=== PATIENT | female | born 1935 | race Caucasian/White ===

== ENCOUNTER 2017-11-21 12:28 | Outpatient (CLI) | payer MEDICARE, OTHER | END 2017-11-21 12:29 | disposition home or self-care (01) | LOC: BICMRI 12:28 | PROVIDERS: ATTEND Neurological Surgery | DX: M47.812 Spondylosis without myelopathy or radiculopathy, cervical region (principal) | CPT/HCPCS: 72141 ==

== ENCOUNTER 2018-01-11 06:06 | Observation (INO) | payer MEDICARE, OTHER ==
[2018-01-10 08:58] VITALS: BMI 30.2
[2018-01-11 06:46] LABS: #Basophils 0.1 thou/uL (0.0-0.2); #Eosinphils 0.2 thou/uL (0.0-0.7); #Lymphocytes 2.6 thou/uL (1.20-3.40); #Monocytes 0.6 thou/uL (0.11-0.59); #Neutrophils 4.2 thou/uL (1.40-6.50); %Basophils 1.3 % (0.0-1.0); %Lymphocytes 34.2 % (21.0-51.0); %Monocytes 8.4 % (0.0-10.0); %Neutrophils 54.1 % (42.0-75.0); Hemoglobin 13.5 g/dL (12.0-16.0); Mean Corpuscular HGB CONC 33.7 g/dL (32.0-36.0); Mean Corpuscular Hemoglobin 30.4 pg (27.0-31.0); Mean Corpuscular Volume 90.2 fl (81.0-99.0); Platelet Count 273 thou/uL (130-400); RBC Distribution Width 12.2 % (11.5-14.5); Red Blood Cell (RBC) Count 4.45 mill/uL (4.20-5.40); White Blood Cell (WBC) Count 7.7 thou/uL (4.8-10.8)
[2018-01-11 07:04] LABS: Anion Gap 14 mmol/L (10-20); BUN (Urea Nitrogen) 18 mg/dL (9.8-20.1); Calc. Creatinine Clearance 58 mL/min (70-130); Calcium 9.4 mg/dL (7.8-10.44); Carbon Dioxide 27 mmol/L (23-31); Chloride 100 mmol/L (98-107); Estimated GFR-MDRD 63; Glucose 238 mg/dL (83-110); Potassium 3.6 mmol/L (3.5-5.1); Sodium 137 mmol/L (136-145)
[2018-01-11] MEDS ORDERED: CEFAZOLIN/Water 2 GM/20 ML SYRINGE ONE (07:07)
[2018-01-11] MEDS ORDERED: Midazolam HCl 2 mg/2 ml Vial ONE (07:07)
[2018-01-11] MEDS ORDERED: Phenylephrine HCL 10 MG/ML VIAL ONE (07:09)
[2018-01-11] MEDS ORDERED: Fentanyl 100 MCG/2 ML VIAL ONE ×2 (07:19→09:14)
[2018-01-11] MEDS ORDERED: Sodium Chloride 0.9% 10 ML ONE (07:48)
[2018-01-11] MEDS ORDERED: HYDROmorphone 0.5 MG/0.5 ML SYRINGE ONE (08:22)
[2018-01-11] MEDS ORDERED: Morphine Sulfate 2 MG/ML SYRINGE SLOW IVP PRN (08:54)
[2018-01-11] MEDS ORDERED: HYDROmorphone 2 MG/ML VIAL SLOW IVP PRN (08:54)
[2018-01-11] MEDS ORDERED: Meperidine HCl/PF 25 MG/ML VIAL SLOW IVP PRN (08:54)
[2018-01-11] MEDS ORDERED: Promethazine HCl 25 MG/ML VIAL IM PRN (08:54)
[2018-01-11] MEDS ORDERED: Ondansetron HCl/PF 4 MG/2 ML Vial IVP PRN ×2 (08:54→15:33)
[2018-01-11] MEDS ORDERED: Promethazine HCl 25 MG/ML VIAL SLOW IVP PRN (08:54)
--- NOTE | 2018-01-11 09:02 | OP ---
DATE OF SERVICE: 01/11/2018 SURGEON: Deni Taveras M.D. MANUFACTURING ENGINEERING DIRECTOR: RAVI Iverson PROCEDURE: Anterior cervical discectomy C4-5 and C5-6, interbody arthrodesis, intravertebral biomech anical device, local morselized autograft, demineralized bone matrix, anterior titanium instrumentati on C4-5 and C5-6. PROCEDURE IN DETAIL: The patient was brought to the operating room and intubated. She was positione d supine in modest extension on a gel-filled donut. Incision was made in the right precervical area and dissecting medial to the sternocleidomastoid muscle we identified the anterior cervical spine and our level was confirmed by x-ray. We debrided anterior osteophytes. Placed distraction across the disc spaces, and then completely removed the intravertebral disc decompressing the neural elements. The bony endplates were then decorticated for the purpose of arthrodesis and appropriately sized intr avertebral biomechanical PEEK device was brought into the field, filled with demineralized bone matri x, local morselized autograft, and tapped into place securely at C4-5 and C5-6. Next, an anterior pl ate was brought in the field and secured to C5, and C6 using two 14 mm screws at each level. The wou nd was then extensively irrigated, immaculate hemostasis was secured, and the wound was closed in devyn tomic layers.
[2018-01-11] MEDS ORDERED: Lorazepam 1 MG TAB PO PRN (10:45)
[2018-01-11] MEDS ORDERED: PROPOFOL 200 MG/20 ML VIAL ONE (14:21)
[2018-01-11] MEDS ORDERED: Glycopyrrolate 0.2 MG/ML 5 ML SYRINGE ONE (14:21)
[2018-01-11] MEDS ORDERED: Dexamethasone 20 MG/5 ML VIAL ONE (14:21)
[2018-01-11] MEDS ORDERED: Lidocaine 1% PF 5 ML VIAL ONE (14:21)
[2018-01-11] MEDS ORDERED: Milk Of Magnesia 30 ML UDCUP PO PRN (15:27)
[2018-01-11] MEDS ORDERED: tiZANidine HCl 4 MG TAB PO PRN (15:27)
[2018-01-11] MEDS ORDERED: diphenhydrAMINE 25 MG CAP PO PRN (15:27)
[2018-01-11] MEDS ORDERED: HYDROcodone/Acetaminophen 10/325 mg Tablet PO PRN ×2 (15:27)
[2018-01-11] MEDS ORDERED: traMADol HCl 50 MG TAB PO PRN ×2 (15:27)
[2018-01-11] MEDS ORDERED: diphenhydrAMINE 50 MG/ML VIAL IVP PRN (15:27)
[2018-01-11] MEDS ORDERED: Mag-Al 1200 mg/1200 mg/30 ML UDCUP PO PRN (15:27)
[2018-01-11] MEDS ORDERED: Morphine 4 MG/ML VIAL SLOW IVP PRN ×2 (15:31→15:32)
--- NOTE | 2018-01-11 15:54 | CON ---
DATE OF CONSULTATION: 01/11/2018 TIME OF SERVICE: 1415 hours. PRIMARY CARE PHYSICIAN: JOSE Smart REFERRING PHYSICIAN: Dr. Deni Taveras. REASON FOR CONSULTATION: Medical management post anterior cervical diskectomy and fusion. HISTORY OF PRESENT ILLNESS: Ms. Coburn is a pleasant 82-year-old female with history of hypertensio n, depression/anxiety, hypothyroidism, breast cancer, and osteoarthritis who is postop day 0 today fr om C4-5 and C5-6 interbody arthrodesis and diskectomy with a titanium instrumentation and fusion. Sh melissa had no noted intraoperative complications. She has been seen postop for medical management. She denies any chest pain, shortness of breath or nausea and vomiting. No diarrhea or constipation. Does complain of dry mouth and upper airway congestion. She says for the last few days since the we ather change, she has had some chronic cough. Her sister and daughter at the bedside noted no other problems. PAST MEDICAL HISTORY: 1. Hypertension, essential. 2. Depression. 3. Hypothyroidism. 4. Anxiety. 5. Right-sided breast cancer in the past. PAST SURGICAL HISTORY: 1. Left TKA some 8 to 10 years ago. 2. Right mastectomy. 3. MediPort placement and subsequent partial removal. 4. TVHBSO remotely. HOME MEDICATIONS: 1. Amlodipine 5 mg p.o. daily. 2. Benadryl 25 mg p.o. daily p.r.n. allergies. 3. Duloxetine 60 mg p.o. daily. 4. Levothyroxine 100 mcg daily. 5. Lisinopril/hydrochlorothiazide 20/12.5 p.o. daily. 6. Lorazepam 1 mg p.o. b.i.d. p.r.n. anxiety. ALLERGIES: NKDA. FAMILY HISTORY: Negative for premature coronary artery disease. No history of clotting or bleeding disorder. No immune dysfunction. SOCIAL HISTORY: She does not use tobacco and does not shoot up with drugs. She does drink 3-4 beers per week, but never more than 1 at a time. Anticipates going home on discharge. REVIEW OF SYSTEMS: All systems were reviewed and negative except stated as above. PHYSICAL EXAMINATION: VITAL SIGNS: Temperature 98.3, pulse 94, blood pressure 144/72, respiratory rate 18, satting 93% on 3 liters nasal cannula. GENERAL: She is awake. She is alert. She is oriented x3. She is a well-developed, well-nourished, slightly obese elderly white female, appears to be in no distress, but does feel a little groggy. HEENT: Normocephalic, atraumatic. Pupils are equal, round, reactive to light bilaterally, mucous me mbranes are moist. She has no visible lesions. No thrush. She has some bogginess of the nasal turb inates. She has got nasal cannula in place. NECK: Supple. No lymphadenopathy, JVD or thyromegaly. She has normal carotid upstrokes. I do not appreciate bruits. Her anterior cervical diskectomy scar incision is clean, dry, and intact. There is no strikethrough through the bandage. RESPIRATORY: Lungs are clear to auscultation bilaterally.: She has good air movement. Symmetrical chest excursion. She has no prolonged expiratory phase. No wheezes, no rales, no rhonchi. CARDIOVASCULAR: She has normal cardiac and regular. Normal S1 and S2. She has no S3 or S4. She iraheta d no murmurs. ABDOMEN: Soft, is nontender, nondistended. She has hyperactive bowel sounds present in all 4 quadra nts. I did not appreciate any rebound, rigidity or guarding. EXTREMITIES: No cyanosis, no clubbing. She has no edema. SKIN: Warm, moist, and well perfused. There is no other rash or lesion other than her incision. IV site is intact. MUSCULOSKELETAL: Otherwise normal to inspection. Large joints appear uninflamed. She has good rang e of motion. No palpable effusions. NEUROLOGIC: Shows cranial nerves II-XII grossly intact. She has no focal deficits. Normal speech a nd 5/5 strength in all 4 of her extremities. LABORATORY DATA: Preoperatively shows sodium of 137, potassium 3.6, chloride 100, bicarbonate 27, BU N 18, creatinine 0.86 and glucose of 231, calcium 9.4. CBC showed a white count of 7.7, hemoglobin i s 13.5, hematocrit of 40.1, platelet count is 273,000. ASSESSMENT AND PLAN: 1. Hypertension, essential. 2. Hypothyroidism. 3. Anxiety disorder. 4. History of breast cancer. 5. Osteoarthritis. 6. Status post anterior cervical diskectomy and fusion by Dr. Taveras. Routine postoperative care per Dr. Taveras. We will monitor her blood pressure and continue thyroid medication. I will continue lisinopril/hydrochlorothiazide and her amlodipine. She did have elevat ed sugars prior to surgery. We will see if she was on any D5 or lactated Ringer's at that point. We will monitor sugars with q.6-hour Accu-Cheks tonight.
[2018-01-11] MEDS: CEFAZOLIN/Water 2 GM/20 ML SYRINGE SLOW IVP SCH ×2 (16:17→23:55)
[2018-01-11] MEDS: Sodium Chloride 0.9% 1,000 ML IV SCH (16:21)
[2018-01-11] MEDS ORDERED: Cepastat Lozenges 1 LOZ PO PRN (16:48)
[2018-01-11] MEDS ORDERED: Dextrose 50% Abboject 50 ML SYRINGE SLOW IVP PRN (16:59)
[2018-01-11] MEDS ORDERED: Dextrose 5% in Water 1,000 ML IV PRN (16:59)
[2018-01-12] MEDS: Sodium Chloride 0.9% 1,000 ML IV SCH (00:02)
[2018-01-12] MEDS ORDERED: Levothyroxine Sodium 100 MCG TAB PO SCH (06:00)
[2018-01-12 07:16] VITALS: BP 128/78; TEMP 98.6
[2018-01-12] MEDS ORDERED: diphenhydrAMINE 25 MG CAP PO SCH (09:00)
[2018-01-12] MEDS ORDERED: Amlodipine 5 MG TAB PO SCH (09:00)
[2018-01-12] MEDS ORDERED: DULoxetine 60 MG CAP PO SCH (09:00)
[2018-01-12] MEDS ORDERED: Fluticasone Propionate Nasal Spray 16 gm Bottle NASAL SCH (09:00)
[2018-01-12] MEDS ORDERED: Lisinopril/Hydrochlorothiazide 20 mg/12.5 mg Tablet PO SCH (09:00)
[2018-01-12] MEDS ORDERED: guaiFENesin ER 600 MG TAB PO SCH (09:00)
--- NOTE | 2018-01-12 09:51 | DIS ---
DATE OF ADMISSION: 01/11/2018 DATE OF DISCHARGE: 01/12/2018 ATTENDING PHYSICIAN: Dr. Deni Taveras DISCHARGE SUMMARY: The patient is an 82-year-old female who was recently seen in our offic e for progressive neck and arm pain. Her MRI revealed significant disk disease at C4-5 and 5-6 and t herefore C4-5, C5-C6 ACDF was recommended by Dr. Taveras. The patient underwent this procedure yest erday without any complications. She was transitioned to the Med/Surg floor. Her pain was well cont rolled with p.o. medications. She was tolerating regular diet, and voiding appropriately. Of note, the patient did have some elevated glucose the day of her surgery. She does not have a history of di abetes and was given LR fluids as well as Decadron during her stay. She was seen by the Hospitalist who felt like that these may have been contributory to her elevated glucose levels. They do not jameson mmend starting any glycemic medications at this time, but rather follow up with her PCP in [facility] 1 week for recheck. I am in agreement with this plan. I have discussed this with the patient. She will also see us in 2 weeks for a Neurosurgery evaluation and repeat x-rays. I discussed home care precautions and reason s to reach out to us sooner. She has been provided with prescriptions for [place] as well as Zanaflex.
--- NOTE | 2018-01-12 21:56 | PDOC.PN ---
- Subjective Encounter Start Date: 01/12/18 Encounter Start Time: 08:50 Pt feels much better this AM, still with congestion, post nasal drip and dry cough. no CP, no SOB, no N/V/D/C, pain well controlled. Glucose last night at 300. pt did receive LR in the OR and decadron, could contribute. pt then gave the history that her PCP has been watching her sugars for some time. No other compalints or events All systems reviewed and neg x as above - Objective MAR Reviewed: Yes Vital Signs & Weight: Weight Weight 160 lb I&O: 01/11/18 01/12/18 01/13/18 06:59 06:59 06:59 Intake Total 3805 Balance 3805 Result Diagrams: 01/11/18 06:37 01/11/18 06:37 Additional Labs: Accuchecks 01/12/18 06:08 POC Glucose 261 H Radiology Reviewed by me: Yes EKG Reviewed by me: Yes Phys Exam - Physical Examination Constitutional: NAD HEENT: PERRLA, moist MMs, sclera anicteric, oral pharynx no lesions right anterior incision C/D/I, gauze without strikethrough. + posterior cobblestoning Neck: no nodes, no JVD, supple Respiratory: no wheezing, no rales, no rhonchi, clear to auscultation bilateral Cardiovascular: RRR, no significant murmur, no rub Gastrointestinal: soft, non-tender, no distention, positive bowel sounds Musculoskeletal: pulses present, edema present Neurological: non-focal, normal sensation, moves all 4 limbs Lymphatic: no nodes Psychiatric: normal affect, A&O x 3 Skin: no rash, normal turgor, cap refill <2 seconds Dx/Plan (1) Hypothyroidism Code(s): E03.9 - HYPOTHYROIDISM, UNSPECIFIED Status: Chronic Qualifiers: Hypothyroidism type: acquired Qualified Code(s): E03.9 - Hypothyroidism, unspecified (2) HTN (hypertension) Code(s): I10 - ESSENTIAL (PRIMARY) HYPERTENSION Status: Chronic Qualifiers: Hypertension type: essential hypertension Qualified Code(s): I10 - Essential (primary) hypertension (3) Anxiety Code(s): F41.9 - ANXIETY DISORDER, UNSPECIFIED Status: Chronic (4) History of breast cancer Code(s): Z85.3 - PERSONAL HISTORY OF MALIGNANT NEOPLASM OF BREAST Status: Chronic (5) Hyperglycemia Code(s): R73.9 - HYPERGLYCEMIA, UNSPECIFIED Status: Acute Comment: can follow upwith PCP. likely secondary to stress, decadron, and LR. - Plan * . Home today per NSG team.
== END 2018-01-12 10:40 | disposition home or self-care (01) ==
LOC: SDC 06:06 → SURG A 08:24 → EDSTATUS 09:28
PROVIDERS: ADMIT Neurological Surgery; ATTEND Neurological Surgery
PROC: 0RG2070 Fusion of 2 or more Cervical Vertebral Joints with Autologous Tissue Substitute, Anterior Approach, Anterior Column, Open Approach (ICD-10-PCS; principal; 2018-01-11)
PROC: 0RG20A0 Fusion of 2 or more Cervical Vertebral Joints with Interbody Fusion Device, Anterior Approach, Anterior Column, Open Approach (ICD-10-PCS; 2018-01-11)
DX: M50.121 Cervical disc disorder at C4-C5 level with radiculopathy (principal); I10 Essential (primary) hypertension; E03.9 Hypothyroidism, unspecified; F41.9 Anxiety disorder, unspecified; R73.9 Hyperglycemia, unspecified; M19.90 Unspecified osteoarthritis, unspecified site; Z79.899 Other long term (current) drug therapy; Z85.3 Personal history of malignant neoplasm of breast
CPT/HCPCS: 20930; 20936; 22551; 22552; 22845; 22853 ×2; 76001; 80048; 82962 ×2; 85025; 93005; 96361; 96374; 96376; 97116; 97139; C1713 ×2; C1776; G0378; G8978; G8979; G8980; 36415; 36416; 93010; A4216; J0131; J1100; J1170; J2001; J2250; J2370; J2704; J3010; J3490

== ENCOUNTER 2018-01-25 10:56 | Outpatient (CLI) | payer MEDICARE, OTHER ==
--- NOTE | 2018-01-25 12:58 | RAD ---
CERVICAL SPINE THREE VIEWS: History: 82-year-old female with history of cervical spondylosis without myelopathy. FINDINGS: Anterior cervical fusion changes are noted at C4, C5, and C6. There is 0.2 cm of anterolisthesis of C 4 on C5 as well as C6 on C7. Heterogeneous bony demineralization. Cervical multilevel disc osteophyto sis and facet arthrosis. IMPRESSION: Cervical spondylosis. Anterior cervical fusion changes at C4, C5, and C6 with approximately 0.2 cm of anterolisthesis of C4 on C5 and C6 on C7. No old studies. POS: [facility]
== END 2018-01-25 10:57 | disposition home or self-care (01) ==
LOC: TBSIIMAG 10:56
PROVIDERS: ATTEND Neurological Surgery
DX: M54.2 Cervicalgia (principal); M47.892 Other spondylosis, cervical region; M43.12 Spondylolisthesis, cervical region; Z98.1 Arthrodesis status
CPT/HCPCS: 72040

== ENCOUNTER 2018-12-05 10:47 | Outpatient (CLI) | payer MEDICARE, OTHER ==
--- NOTE | 2018-12-05 11:10 | RAD ---
F3 views lumbar spine. HISTORY: Low back pain AP, lateral and coned-down views lumbar spine demonstrates previous surgical decompression involving L2, L3 and L4 levels. Mild S-shaped scoliosis is seen. Multilevel disc space height loss with vacuum disc changes seen at L2-3, L3-4, L4-5 and L5-S1. No evidence of acute lumbar spine fracture seen. Marked atherosclerotic calcifications of the abdominal aorta seen. IMPRESSION: Severe lumbar degenerative changes.
== END 2018-12-05 10:48 | disposition home or self-care (01) ==
LOC: RAD-FRANK 10:47
PROVIDERS: ATTEND Nurse Practitioner Family
DX: Z00.01 Encounter for general adult medical examination with abnormal findings (principal); M54.9 Dorsalgia, unspecified; M47.816 Spondylosis without myelopathy or radiculopathy, lumbar region
CPT/HCPCS: 72100